=== PATIENT | male | born 1930 | race Caucasian/White ===

== ENCOUNTER 2016-06-13 18:02 | Inpatient (IN) | payer MEDICARE, OTHER ==
--- NOTE | 2016-06-13 18:54 | CT ---
EXAM DESCRIPTION: CT HEAD WITHOUT IV CONTRAST CLINICAL HISTORY: 86 y/o Mfall. Loss of consciousness. COMPARISON: None. TECHNIQUE: Contiguous axial images were obtained through the brain without IV contrast. FINDINGS: The ventricles and sulci are prominent consistent with atrophic change. Microvascular ischemic changes. No acute hemorrhage. No mass lesions. Atherosclerotic calcifications. Minimal mucosal thickening within the left maxillary sinus and inferior left frontal sinus. 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 No depressed calvarial fractures. IMPRESSION: Atrophy and microvascular ischemic changes. No acute intracranial abnormality is identified. Electronically signed by: Mike Desir MD 06/13/2016 18:51
--- NOTE | 2016-06-13 19:05 | CT ---
EXAM DESCRIPTION: CT CERVICAL SPINE WITHOUT IV CONTRAST CLINICAL HISTORY: 86 y/o Mfall. Generalized neck pain. COMPARISON: None. TECHNIQUE: Contiguous axial images obtained through the cervical spine without IV contrast. Coronal and sagittal reformatted images obtained. FINDINGS: Mild anterolisthesis at several levels which is likely degenerative. No acute fractures identified. Degenerative changes of the uncovertebral joints and facets throughout the cervical spine. Severe disc space narrowing at C5-6 and C6-7. There is prominent tissue posterior to the dens likely representing pannus tissue. There does not appear to be significant narrowing of the spinal canal. C2-3: Degenerative changes without significant spinal or foraminal stenosis. C3-4: Degenerative changes with posterior osteophytes and mild bulging. There is mild spinal stenosis, moderate right neural foraminal stenosis and severe left neural foraminal stenosis. C4-5: Degenerative changes without significant spinal stenosis. There is severe bilateral neural foraminal stenosis greater on the right. C5-6: Degenerative changes with severe bilateral neural foraminal stenosis. C6-7: Degenerative changes with moderate right neural foraminal stenosis and severe left neural foraminal stenosis. There are atherosclerotic calcifications. IMPRESSION: No acute cervical spinal fracture is identified. Multilevel degenerative changes. Electronically signed by: Mike Desir MD 06/13/2016 19:03
[2016-06-13] MEDS ORDERED: SODIUM CHLORIDE 0.9% 1000ML 1,000 ML IVS ONE (19:16)
--- NOTE | 2016-06-13 19:21 | ED.PDOC ---
History of Present Illness - General Chief Complaint: Trauma Stated Complaint: fall injury Time Seen by Provider: 06/13/16 18:16 Source: patient, family Exam Limitations: clinical condition - History of Present Illness Initial Comments: Patient presents after a fall in his house. A neighbor, who checks on him regularly, found him sitting in the kitchen. The rug was pulled back and his cane was on the floor. The patient was making incoherent references to his who three years ago. He had what appeared to be red be around his left eye. His son was called and the son came and brought him to the E.D. The total elapsed time between the estimated time of fall and E.D. presentation was about 6 hours. Patient complains that his left hand hurts but otherwise has no complaints. He appears sleepy and not very talkative. No other history available. Timing/Duration: 4-6 hours Severity: moderate Improving Factors: nothing Worsening Factors: nothing Associated Symptoms: denies symptoms Allergies/Adverse Reactions: Allergies NO KNOWN ALLERGY Allergy (Unverified 08/24/13 16:02) Home Medications: Ambulatory Orders predniSONE [Prednisone] 40 mg PO DAILY #15 tab 06/12/15 Review of Systems - Review of Systems Constitutional: States: no symptoms reported Unable to Obtain Due To: clinical condition Past Medical History (General) - Patient Medical History Hx Stroke: No Hx Congestive Heart Failure: No Hx Hypertension: Yes Hx Diabetes: No - Vaccination History Hx Tetanus, Diphtheria Vaccination: No Hx Influenza Vaccination: No Hx Pneumococcal Vaccination: No - Social History Hx Tobacco Use: No Hx Alcohol Use: No Hx Substance Use: No Hx Substance Use Treatment: No Hx Depression: No - Female History Patient is a Female of Child Bearing Age (10 -59 yrs old): No Family Medical History - Family History Mother Family History: No Known Age at (years of age): 96 Cause of : old age Physical Exam - Physical Exam General Appearance: Lethargic Eye Exam: bilateral normal Ears, Nose, Throat: normal ENT inspection Neck: non-tender, full range of motion, supple Respiratory: lungs clear Cardiovascular/Chest: normal peripheral pulses, regular rate, rhythm, no edema Gastrointestinal/Abdominal: normal bowel sounds, non tender, soft Extremity: other - left hand is TTP over the wrist and has some abrasions. He refuses to make a fist because he says it hurts. Neurologic: city planning aide II-XII nml as tested, other - oriented to name only Skin Exam: normal color Lymphatic: no adenopathy Progress - Progress Progress: 06/13/16 19:26 CK 1181. One liter NS bolus started. 06/13/16 19:34 EKG showed NSR with no ST changes nor T wave inversions. No LBBB. Troponin negative. Creatinine kinase 1181 BUN/Cr /.05 06/13/16 19:35 Patient admitted for rhabdomyolysis and AMS. Departure - Departure Clinical Impression: Altered mental status, Rhabdomyolysis Disposition: Admit Patient Condition: Good Departure Forms: ED Discharge - Pt. Copy, Patient Portal Self Enrollment Diet: resume usual diet Activity: increase activity as tolerated Home Medications: Ambulatory Orders predniSONE [Prednisone] 40 mg PO DAILY #15 tab 06/12/15
--- NOTE | 2016-06-13 19:24 | RAD ---
EXAM DESCRIPTION: XR HAND 3 OR MORE VIEWS CLINICAL HISTORY: 86 y/o Mfall onto hand COMPARISON: None. TECHNIQUE: Three views of the left hand. FINDINGS: The bones are osteopenic. There are degenerative changes primarily involving the PIP and DIP joints and the 1st carpometacarpal joint. No acute fracture or dislocation is identified. IMPRESSION: No acute fracture identified. Degenerative changes. Electronically signed by: Mike Desir MD 06/13/2016 19:22
--- NOTE | 2016-06-13 19:29 | RAD ---
EXAM DESCRIPTION: XR CHEST 1 VIEW CLINICAL HISTORY: 86 y/o Mfall, leukocytosis COMPARISON: None. FINDINGS: The cardiomediastinal silhouette appears unremarkable. Mild tortuosity in the thoracic aorta. Mild atelectasis or scarring at the left lung base. No consolidating infiltrates or pleural effusions. No pneumothorax. Degenerative changes in the spine. IMPRESSION: No acute abnormality is identified. Electronically signed by: Mike Desir MD 06/13/2016 19:27
--- NOTE | 2016-06-13 22:06 | HP ---
SUPERVISING PHYSICIAN: Boom Mata MD CHIEF COMPLAINT: Altered mental status. HISTORY OF PRESENT ILLNESS: This is an 86 year-old male patient who is a patient of Dr. Wright. He lives alone and a neighbor who checks on him frequently found him sitting in a chair after a fall at his house. He was down for an unknown amount of time. The rug was pulled back and his cane was on the floor and he was speaking incoherently and was very confused. The neighbor called his son who lives in [place], his son came to his father's house and brought him to the Emergency Room. The total elapsed time that he was found by the neighbor and brought to the Emergency Room was around 6 hours but it is not known how long he was down. The patient did say that he remembered getting up at his usual time this morning at 7:30 but after that he does not remember anything that happened after that. He does have ecchymosis to his left eye plus he has a bruise on the inner aspect of his left wrist as well as an abrasion on his posterior shoulder. A CT of the head was done that showed no acute intracranial abnormality with atrophy and microvascular ischemic changes. A chest x-ray was done and it showed no acute abnormality. Hand x-ray showed no acute fracture and a spinal CT showed no acute cervical spinal fracture. His lab showed a white count of 12 with a left shift. Sodium 135, potassium 3.8 , chloride 101, carbon dioxide 24, BUN 17, creatinine 1.05. Glucose 111, serum osmolality 272.3. Total bilirubin 1.5, AST 43, creatinine kinase 1,181 and CKMB 9.3 with a BNP of 119. Urine was collected and sowed moderate blood and was positive for leukocyte esterase as well as urine RBCs and urine WBCs. I was called for admission. PAST MEDICAL HISTORY: 1. Hypertension. 2. Low back pain. 3. Hyperlipidemia. 4. Mild Benign Prostatic Hypertrophy. PAST SURGICAL HISTORY: 1. Percutaneous transluminal coronary angioplasty with stent in 1999. CURRENT MEDICATIONS: Per the EMR and awaiting verification. ALLERGIES: NO KNOWN DRUG ALLERGIES. FAMILY HISTORY: Noncontributory. SOCIAL HISTORY: He lives alone. He did smoke over 30 years ago but it is unknown how much. He has not smoked in over 30 years. He does not use any ETOH or illicit drugs. REVIEW OF SYSTEMS: Unobtainable due to patient's mental status. PHYSICAL EXAMINATION: VITAL SIGNS: Afebrile, pulse rate 62, blood pressure 138/80, respiratory rate 18, 02 saturation is 98% on room air. GENERAL: This is an 86 year-old male patient who is lying in his hospital bed. He is in no acute distress. HEENT: Normocephalic. His left lower lid is ecchymotic, otherwise his pupils are equal and reactive. Oropharynx is clear. Oral mucous membranes are slightly dry. NECK: Supple without mass. No jugular venous distention. CHEST: Clear to auscultation bilaterally. There is equal rise and fall with inspiration and expiration. CARDIOVASCULAR: Regular rate and rhythm. ABDOMEN: Soft, nondistended, non-tender. Bowel sounds are positive. EXTREMITIES: He has a large ecchymotic area on the inside portion of his left wrist, otherwise there is no cyanosis, clubbing, or edema. Skin is warm and dry. INTEGUMENT: No lesions or rashes other than a small abrasion on his left posterior shoulder. NEUROLOGIC: He is awake, alert, oriented to person only. He does answer a few yes/no questions appropriately. His son is at the bedside. LABORATORY: Lab and films are as per the history of present illness. ASSESSMENT: 1. Rhabdomyolysis. 2. Urinary tract infection. 3. Altered mental status most likely secondary to #2. 4. History of recent fall with unknown length of down time. 5. Dehydration. 6. Hypertension. 7. Hyperlipidemia. 8. Mildly elevated LFTs most likely secondary to the fall and being down for an unknown amount of time. PLAN: We will admit patient to the hospital. I will place him on telemetry as well as pulse oximetry. Also have neuro checks. Placed a Avalos catheter to monitor his urine output closely and will try to discontinue the catheter in the next 24 to 48 hours. Will repeat his labs in the morning as well as his creatinine kinase and CKMB. Hopefully that will normalize. Also did a culture on his urine and started him on Rocephin IV for his urinary tract infection. His family is quite concerned about his disposition at discharge and would like to make sure that he is safe when he goes home. They feel at this time that home health would be at least the first step to helping him maintain independence if he is safe to go home. He will also need a followup with Dr. Wright, although the patient is not very compliant with his medical care, I believe with the prompting of his son we can get a carotid ultrasound as well as maybe a cardiac workup and a full health checkup after his discharge. Dr. Mata is the collaborating physician and available for consultation. #[id number] [facility]TDD
[2016-06-13] MEDS ORDERED: ONDANSETRON INJ 4 MG/2 ML VIAL IV PRN (23:01)
[2016-06-13] MEDS ORDERED: KCL 20MEQ/D5 1/2NS 0 ML IVS ONE (23:34)
[2016-06-13] MEDS: KCL 20MEQ/D5NS 1,000 ML IVS PRN (23:35)
[2016-06-13] MEDS ORDERED: SODIUM CHL 0.9% 50ML MIN-BAG+ 50 ML IVPB ONE (23:36)
[2016-06-13] MEDS: cefTRIAXone SODIUM 1 GM in SODIUM CHL 0.9% 50ML MIN-BAG+ 50 ML IVPB SCH (23:37)
[2016-06-13] MEDS ORDERED: cefTRIAXone SODIUM 1 GM VIAL ONE (23:37)
[2016-06-14] MEDS: IV SET AND CAP CHANGE INJ INJ SCH (01:12)
[2016-06-14] MEDS ORDERED: SODIUM CHLORIDE 0.9% 500ML 500 ML IVS ONE (06:32)
[2016-06-14] MEDS ORDERED: SODIUM CHL 0.9% 50ML MIN-BAG+ 50 ML IVPB ONE ×2 (07:44→19:51)
[2016-06-14] MEDS ORDERED: cefTRIAXone SODIUM 1 GM VIAL ONE ×2 (07:44→19:51)
[2016-06-14] MEDS ORDERED: IBUPROFEN 400 MG TAB ONE (08:21)
[2016-06-14] MEDS: IBUPROFEN 400 MG TAB PO PRN ×2 (08:48→16:55)
[2016-06-14] MEDS: KCL 20MEQ/D5NS 1,000 ML IVS PRN ×2 (08:48→17:09)
[2016-06-14] MEDS: cefTRIAXone SODIUM 1 GM in SODIUM CHL 0.9% 50ML MIN-BAG+ 50 ML IVPB SCH ×2 (11:21→23:00)
--- NOTE | 2016-06-14 14:52 | PN ---
DATE: 06/14/16 SUPERVISING PHYSICIAN: Boom Mata M.D. SUBJECTIVE: The patient is sitting up in his bed. He is much more talkative and oriented today than he was last night. He denies any chest pain, shortness of breath, nausea, vomiting or diarrhea. He does complain of the left wrist hurting. He states it is just sore and it is a little achy. I discussed with his son at length about his disposition after discharge and they are concerned that he is safe to go home. OBJECTIVE: VITAL SIGNS: He is afebrile, pulse rate 56, blood pressure 128/77, respiratory rate 18, O2 sat 95% on room air. GENERAL: This is an 86 year-old male patient who is sitting up in his hospital bed. He is in no acute distress. CARDIAC: Slightly bradycardic but otherwise normal rhythm. ABDOMEN: Soft, nondistended, non-tender. Bowel sounds are positive. EXTREMITIES: No cyanosis, clubbing or edema. He does have a large ecchymotic place on his inside left wrist. NEUROLOGIC: He is awake, alert and oriented times three although he does get slightly confused at times with specific questioning and he still cannot remember what happened after he woke up yesterday morning. LABORATORY: White count is down to 10.1. He still has a slight left shift. His metabolic panel is basically within normal limits with the exception of his anion gap is 10.8, glucose 124, creatinine kinase has only come down slightly from 1181 yesterday to 1072 today. His CK-MB was 9.3 yesterday and is 8.1 today. His initial blood cultures are negative. All other labs and films have been reviewed via the EMR. ASSESSMENT: 1. Rhabdomyolysis with an elevated creatinine kinase that is still elevated at greater than 1,000. 2. Urinary tract infection presently on Rocephin antibiotic therapy and awaiting culture results. 3. Altered mental status most likely secondary to number 2. 4. History of a recent fall with unknown length of down time. 5. Dehydration that is mostly resolving. 6. Hypertension. 7. Hyperlipidemia. 8. Mildly elevated liver function tests that have mostly resolved. PLAN: I have changed the patient to a full admission as his creatinine kinase is still greater than 1,000. He also has a urinary tract infection. Although his neurologic status is much improved since yesterday, he is still confused at times. I spoke at length to the son about his disposition and at this point he feels that his dad would benefit from Home Health. If he does not improve, he may have to go to an assisted living facility. His Avalos catheter is still in place and we will monitor his urine output over the next 12 hours or so, and hopefully he can do bladder training tomorrow as long as his Rhabdomyolysis begins to resolve. I repeated his creatinine kinase as well as his CK-MB and a metabolic panel at 5:00 PM. There is also concern that his BNP from the Emergency Room was slightly elevated and he has no congestive heart failure diagnosis, so it would be helpful maybe after discharge if he received a cardiac workup. Will get an ambulatory study in the morning to make sure he is safe for discharge. Dr. Mata is the collaborating physician and available for consultation. #[id number] DEVON
--- NOTE | 2016-06-15 00:16 | PCM.CORE ---
Physician DVT/VTE - Prophylaxis Currently: Patient already on anticoagulation therapy - Nurse DVT Assessment & Total Each Risk Factor Represents 3 Points: Age over 75 years Each Risk Factor Represents 1 Point: Medical PT at Bed Rest DVT Assessment Score: 4 - 3-4 High Risk Treatments: Early Ambulation *, Sequential Compression Device
[2016-06-15] MEDS ORDERED: ENOXAPARIN SODIUM 40 MG/0.4 ML SYG SUBCU SCH (00:30)
[2016-06-15] MEDS: SODIUM CHLORIDE 0.9% (FLUSH) 10 ML SYG IV PRN ×2 (03:13→23:15)
[2016-06-15] MEDS: IBUPROFEN 400 MG TAB PO PRN ×3 (05:05→23:16)
[2016-06-15] MEDS ORDERED: SODIUM CHL 0.9% 50ML MIN-BAG+ 50 ML IVPB ONE ×2 (08:24→19:35)
[2016-06-15] MEDS ORDERED: cefTRIAXone SODIUM 1 GM VIAL ONE ×2 (08:25→19:36)
[2016-06-15] MEDS: SODIUM CHLORIDE 0.9% (FLUSH) 10 ML SYG IV SCH ×2 (09:13→20:50)
[2016-06-15] MEDS: cefTRIAXone SODIUM 1 GM in SODIUM CHL 0.9% 50ML MIN-BAG+ 50 ML IVPB SCH ×2 (11:24→23:15)
--- NOTE | 2016-06-15 16:50 | PN ---
DATE: 06/15/16 SUBJECTIVE: The patient is sitting up drinking some beverage. He is pleasant and is able to answer some questions but is disoriented to time and person, and somewhat even to place. His appetite is fairly good. He has been living by himself at home and has a recent blunt injury to the left side of his head with associated bruising and ecchymosis around the left eye. He does not recall falling nor did he recall spending time on the floor which no doubt has contributed to his elevated CPK enzyme slowly improving towards normal. All of this points to the fact that it is a danger for him to be returning home by himself. Family has discussed at length and they very much are willing to contribute to the decisions for eventual disposition. OBJECTIVE: Afebrile, pulse 53, blood pressure 136/77, pulse oximetry 98% on room air. GENERAL: The patient is awake and alert though disoriented. He is able to carryon conversation. He does not recognize some of the family members. He does not know the year nor does he know the names of our current President or the future President. LUNGS: Have a few rhonchi laterally. HEART : Tones regular. ABDOMEN: Soft. Avalos catheter in place and will be removed in the morning. LABORATORY: White count 8,400, hemoglobin 13.2. Electrolytes show potassium stable at 3.9, BUN 15, glucose 102, calcium 8.3. CK has decreased from 723 yesterday to 463 today. Albumin 3.1. Urinalysis did show some pyuria and 1+ bacteriuria but urine culture is negative. Blood cultures are negative. ASSESSMENT: 1. Acute Rhabdomyolysis with elevated creatinine kinase that is steadily lowering towards normal with adequate hydration to prevent renal injury. Probably secondary to prolonged time spent on the floor after a recent fall with the patient having no memory of the same. 2. Altered level of status. 3. Significant dementia which apparently runs in the family and has shown some steady decrease in the patient's ability to remember and to be cognisant of his environment making living at home alone a danger. 4. History of a recent fall with blunt head injury with the patient having no memory of the same. 5. Mild dehydration that is improving with hydration. 6. History of hypertension. 7. History of hyperlipidemia. 8. Mildly elevated liver function studies that have shows significant improvement. PLAN: Will remove the Avalos in the morning and after bladder training is completed. To discuss with Social Service and PT the patient's rehab potential. Family will be here in the morning to assist with the decision. Eventual discharge to a snf close to the family over out of [place] is a strong possibility and will be moved on with Social Service's assistance. Await PT evaluation for safety of ambulation and rehab potential in the morning. [facility][id number] [facility]
[2016-06-15] MEDS ORDERED: ENOXAPARIN SODIUM 40 MG/0.4 ML SYG SUBCU ONE (19:36)
[2016-06-15] MEDS: ENOXAPARIN SODIUM 40 MG/0.4 ML SYG SUBCU SCH (20:50)
[2016-06-16] MEDS ORDERED: cefTRIAXone SODIUM 1 GM VIAL ONE ×2 (07:35→19:19)
[2016-06-16] MEDS ORDERED: SODIUM CHL 0.9% 50ML MIN-BAG+ 50 ML IVPB ONE ×2 (07:35→19:19)
[2016-06-16] MEDS: SODIUM CHLORIDE 0.9% (FLUSH) 10 ML SYG IV SCH ×2 (09:02→20:34)
[2016-06-16] MEDS: cefTRIAXone SODIUM 1 GM in SODIUM CHL 0.9% 50ML MIN-BAG+ 50 ML IVPB SCH ×2 (11:23→23:13)
--- NOTE | 2016-06-16 14:53 | PN ---
DATE: 06/16/16 SUBJECTIVE: The patient is up standing and is able to participate with some ambulation with a walker under physical therapist's supervision. Still quite confused as to where he is, but he is able to carefully walk with support. Discussed with the family who are here from the [facility] and who are going to work with Heidi Shaulis in arranging for a transfer to a halfway facility closer to their home in [facility]. This process is initiated with final results later today. OBJECTIVE: VITAL SIGNS: Afebrile. Pulse 51. Blood pressure 132/71. Pulse oximetry 99% on room air. The patient is able to carry on a conversation though it is noticeably present the confusion state and moderate degree of disorientation. He is able to communicate nicely with family. LUNGS: A few rhonchi in the lateral lung tabares, otherwise clear. HEART: Regular. ABDOMEN : Soft. Muscle tone slightly diminished. LABORATORY: No specific lab studies taken today. Urine and blood cultures are negative. ASSESSMENT: 1. Acute rhabdomyolysis with elevated creatinine kinase that is steadily returning to normal with adequate fluid hydration initially to help protect renal function. Probably secondary to falling and lying on the hard floor for an extended period of time which the patient does not remember. 2. Altered level of consciousness. 3. Significant dementia, which apparently runs in the family and has shown some steady decrease in the patient's ability to care for himself significantly impaired to the point of being a danger if he were to return home where he lives alone. 4. History of a recent fall with blunt head injury with the patient having no memory of the fall. 5. Mild dehydration. 6. History of hypertension. 7. History of hyperlipidemia. PLAN: The patient working with [employer] are in communication at the present time with a halfway facility close to their home in [facility]. This process will be implemented with exchange of information so the patient will hopefully be able to be transferred there by tomorrow for his ongoing care, especially closer to family members. We will continue the IV antibiotics because of the significant evidence of pyuria with bacteruria on the urinalysis even though the initial urine culture did not show any bacterium and if the patient's condition will slowly improve, this will help significantly in final decisions as to where he best can be handled as far as his health goes. Close followup necessary. Reevaluation in the morning. #[id number] [facility]PIT[facility]
[2016-06-16] MEDS: ENOXAPARIN SODIUM 40 MG/0.4 ML SYG SUBCU SCH (20:34)
[2016-06-16] MEDS: IV SET AND CAP CHANGE INJ INJ SCH (23:14)
[2016-06-17] MEDS: IBUPROFEN 400 MG TAB PO PRN (02:02)
[2016-06-17] MEDS ORDERED: SODIUM CHL 0.9% 50ML MIN-BAG+ 0 ML IVPB ONE (07:22)
[2016-06-17] MEDS ORDERED: cefTRIAXone SODIUM 1 GM VIAL ONE (07:22)
[2016-06-17] MEDS: SODIUM CHLORIDE 0.9% (FLUSH) 10 ML SYG IV SCH (08:46)
[2016-06-17] MEDS ORDERED: LISINOPRIL 10 MG TAB ONE (09:50)
[2016-06-17] MEDS ORDERED: LISINOPRIL 10 MG TAB PO SCH (10:00)
[2016-06-17 10:22] VITALS: BP 149/78; TEMP 97.6; O2SAT 97
--- NOTE | 2016-06-18 15:45 | DS ---
SUPERVISING PHYSICIAN: Gera Wright M.D. DISCHARGE DIAGNOSIS: 1. Acute Rhabdomyolysis with an elevated creatinine kinase that is steadily returning to normal with adequate fluid hydration. Most likely his Rhabdomyolysis was secondary to falling and lying on the hard floor for an extended period of time. 2. Altered level of consciousness. 3. Significant dementia that is a significant family history. He has shown a steady decrease in his ability to care for himself and at this point is probably a danger to himself since he lives alone. His family is concerned and he will be going to an extended care facility close to his family in [place]. 4. History of a recent fall with blunt head injury and the patient having no memory of the fall. 5. Mild dehydration. 6. Hypertension. 7. Hyperlipidemia. HISTORY OF PRESENT ILLNESS: This is an 86 year-old male patient who was in his usual state of health at home. He does live alone and he has a neighbor that checks on him quite frequently, and he found him sitting in a chair after a fall at home. The rug was turned over and his cane was lying in a corner, and the patient was very confused. The last thing the patient remembers was getting up that morning. He was found by his neighbor in the afternoon. His son came to see him from [place] and his son then brought him to the Emergency Room. A CT of the head was done that showed no acute intracranial abnormality, but it did show atrophy and microvascular ischemic changes. His chest x-ray was done and showed no acute abnormality. He had a hand x-ray that showed no acute fracture and his spinal CT showed no acute cervical spine fracture. Laboratory initially showed white count of 12 with a left shift. Sodium 135, potassium 3.8, chloride 101, carbon dioxide 24, BUN 17, creatinine 1.05, glucose 111, serum osmolality 272.3. Bilirubin 1.5, AST 43, creatinine kinase 1 ,181 with CK-MB 9.3 and BNP of 119. Urine was collected and showed a moderate amount of blood and positive for leukocyte esterase. HOSPITAL COURSE: He was admitted to the hospital. A Avalos catheter was placed for close urine output monitoring. Serial creatinine kinases and CK-MBs were done. His creatinine kinase came down to 463 on the day prior to discharge. His CK-MB came down to 5.3. White count also normalized to 8.4. He was placed on Rocephin for the urinary tract infection. His cultures were negative. On admission, he was very confused and his confusion only improved slightly. Physical Therapy did an evaluation and it was found that he most likely would not be safe to go home. Maintenance And Custodian Supervisor became involved and per the family's request he was accepted to be placed in a [facility] facility close to his children in [facility]. The [facility] facility has accepted him. His family is here and he is to be discharged to that facility at this time. DISCHARGE PLAN: The patient will be discharged to the [facility] facility near [place], [place]. He will be discharged in stable condition. His family will be in the process of getting a primary care physician; in that area. They are to followup with any problems with their local primary care physician or the hospital nearest to the facility. Dr. Wright is the collaborating physician available for consultation. DISCHARGE MEDICATIONS: 1. Prilosec. 2. Proscar. 3. Lisinopril. 4. Ciprofloxacin. #[id number] [facility]
== END 2016-06-17 11:20 | DRG 565 ==
LOC: ER 18:02 → MS 22:03 → OBSVTOIN 06-14 12:16
PROVIDERS: ADMIT Nurse Practitioner Acute Care; ATTEND Nurse Practitioner Acute Care
DX: T79.6XXA Traumatic ischemia of muscle, initial encounter (principal); N39.0 Urinary tract infection, site not specified; W01.0XXA Fall on same level from slipping, tripping and stumbling without subsequent striking against object, initial encounter; F03.90 Unspecified dementia, unspecified severity, without behavioral disturbance, psychotic disturbance, mood disturbance, and anxiety; R74.8 Abnormal levels of other serum enzymes; E86.0 Dehydration; I10 Essential (primary) hypertension; E78.5 Hyperlipidemia, unspecified; N40.0 Benign prostatic hyperplasia without lower urinary tract symptoms; M54.5 Low back pain; Z60.2 Problems related to living alone; Z95.5 Presence of coronary angioplasty implant and graft; Z87.891 Personal history of nicotine dependence